=== PATIENT | female | born 1955 | race Caucasian/White ===

== ENCOUNTER 2024-07-26 13:05 | Emergency (ER) | payer OTHER ==
--- NOTE | 2024-07-26 14:27 | RAD REPORT ---
EXAMINATION: XR LEFT SHOULDER CLINICAL INDICATION: Female, 69 years old. GLF TECHNIQUE: Multiple views of the left shoulder were obtained. COMPARISON: No prior exam. FINDINGS: Mildly impacted and comminuted fracture proximal left humerus. Humeral head position is mil dly subluxed inferiorly relative to the glenoid.
--- NOTE | 2024-07-26 14:27 | RAD REPORT ---
EXAMINATION: ONE VIEW CHEST XR CLINICAL INDICATION: L upper chest pain TECHNIQUE: Frontal chest projection is submitted. Examination is limited by patient positioning and t echnique. COMPARISON: No prior exam. FINDINGS: The lungs are well inflated and clear. The heart is normal in size. No displaced fractures identified . Mild thoracic dextroscoliosis. IMPRESSION: No acute intrathoracic abnormalities.
--- NOTE | 2024-07-26 14:28 | RAD REPORT ---
EXAMINATION: XR LEFT HUMERUS HISTORY: GLF TECHNIQUE: Multiple views of the left humerus were obtained. COMPARISON: None FINDINGS: Mildly impacted fracture proximal left humerus noted. Humeral head position is mildly sublu xed inferiorly relative to the glenoid. Prominent bony fragment noted superior aspect of the glenohumeral joint.
--- NOTE | 2024-07-26 14:36 | ER ---
Nurse's Notes [facility] Name: Ally Medina Age: 69 yrs Sex: Female : 1955 Arrival Date: 07/26/2024 Time: 13:05 Bed 9 Private MD: Diagnosis: Proximal Humerus Fracture Presentation: 07/26 13:28 Chief complaint: Patient states: she fell just after midnight on , tripping ap3 over a toy. patient complains of pain to her left arm. patient reports being unable to move her left arm. Coronavirus screen: At this time, the client does not indicate any symptoms associated with coronavirus-19. Ebola Screen: No symptoms or risks identified at this time. Initial Sepsis Screen: Does the patient meet any 2 criteria? No. Patient's initial sepsis screen is negative. Does the patient have a suspected source of infection? No. Patient's initial sepsis screen is negative. Risk Assessment: Do you want to hurt yourself or someone else? Patient reports no desire to harm self or others. Onset of symptoms was July 25, 2024. 13:28 Method Of Arrival: Ambulatory ap3 13:28 Acuity: NAVA 3 ap3 Triage Assessment: 13:31 General: Appears uncomfortable, Behavior is calm, cooperative, appropriate for age. ap3 Pain: Complains of pain in left arm. Neuro: Level of Consciousness is awake, alert, obeys commands, Oriented to person, place, time, situation. Cardiovascular: Patient's skin is warm and dry. Respiratory: Airway is patent Respiratory effort is even, unlabored, Respiratory pattern is regular, symmetrical. Musculoskeletal: Range of motion: limited in left shoulder. Historical: - Allergies: 13:30 No Known Allergies; ap3 - PMHx: 13:30 Hypertensive disorder; Asthma; ap3 - Immunization history:: Client reports receiving the 2nd dose of the Covid vaccine, Last tetanus immunization: unknown, Flu vaccine is not up to date. - Infectious Disease History:: Denies. - Social history:: Smoking status: Patient denies any tobacco usage or history of. Screenin:31 [facility] ED Fall Risk Assessment (Adult) History of falling in the last 3 months, ap3 including since admission Yes- single mechanical fall (1 pt) Confusion or Disorientation No (0 pts) Intoxicated or Sedated No (0 pts) Impaired Gait No (0 pts) Mobility Assist Device Used No (0 pt) Altered Elimination No (0 pt) Score/Fall Risk Level 0 - 2 = Low Risk Oriented to surroundings, Maintained a safe environment, Educated pt \T\ family on fall prevention, incl call for assistance when getting out of bed, Assessed \T\ reinforced patient's understanding of fall precautions, Hourly rounding (assess needs \T\ fall precautionary measures) done, Used ambulatory aids as needed (educated on \T\ assisted with), Used gait belt as appropriate. Abuse screen: Denies threats or abuse. Nutritional screening: No deficits noted. Tuberculosis screening: No symptoms or risk factors identified. Assessment: 15:45 Reassessment: Patient appears in no apparent distress at this time. Patient and/or db family updated on plan of care and expected duration. Pain level reassessed. Patient is alert, oriented x 3, equal unlabored respirations, skin warm/dry/pink. General: Appears in no apparent distress. comfortable, Behavior is calm, cooperative. Neuro: Level of Consciousness is awake, alert, obeys commands, Oriented to person, place, time, situation. Respiratory: Airway is patent Respiratory effort is even, unlabored, Respiratory pattern is regular, symmetrical. Vital Signs: 13:28 BP 159 / 91; Pulse 114; Resp 18; Temp 97.9; Pulse Ox 100% ; Weight 68.04 kg; Height 5 ap3 ft. 0 in. ; Pain 10/10; 13:28 Body Mass Index 29.29 (68.04 kg, 152.4 cm) ap3 13:28 Pain Scale: Adult ap3 Laura Coma Score: 13:32 Eye Response: spontaneous(4). Motor Response: obeys commands(6). Verbal Response: ap3 oriented(5). Total: 15. Trauma Score (Adult): 13:32 Eye Response: spontaneous(1); Verbal Response: oriented(1); Motor Response: obeys ap3 commands(2); Systolic BP: > 89 mm Hg(4); Respiratory Rate: 10 to 29 per min(4); Gavi Score: 15; Trauma Score: 12 ED Course: 13:07 Patient arrived in ED. mr 13:08 Pascual Topete MD is Attending Physician. ec2 13:30 Triage completed. ap3 13:32 Patient maintains SpO2 saturation greater than 95% on room air. ap3 13:32 Arm band placed on right wrist. ap3 14:24 CXR XRAY In Process Unspecified. EDMS 14:24 Shoulder Left (2 View) XRAY In Process Unspecified. EDMS 14:24 Humerus Left XRAY In Process Unspecified. EDMS 14:35 Bryce Coles MD is Referral Physician. ec2 15:43 Vivien Cason, RN is Primary Nurse. iw 15:45 No provider procedures requiring assistance completed. Patient did not have IV access db during this emergency room visit. 15:45 Patient has correct armband on for positive identification. Call light in reach. Side db rails up X 1. Provided Education on: ORTHOPEDIC. Administered Medications: 15:25 Drug: Ketorolac IM 30 mg IM once Route: IM; Site: right deltoid; db 15:44 Follow up: Response: No adverse reaction db 15:25 Drug: Acetaminophen PO 1000 mg PO once Route: PO; db 15:44 Follow up: Response: No adverse reaction db 15:25 Drug: Methocarbamol PO 750 mg PO once Route: PO; db 15:44 Follow up: Response: No adverse reaction db Medication: 15:45 VIS not applicable for this client. db Outcome: 14:35 Discharge ordered by . ec2 15:45 Discharged to home via wheelchair, with family, db 15:45 Condition: stable 15:45 Discharge instructions given to patient, family, Instructed on discharge instructions, follow up and referral plans. Prescriptions given X 1, 15:46 Patient left the ED. db Signatures: Dispatcher [employer] EDAR Laurel Jones, Reg Reg mr Vivien Cason RN RN iw July Brown RN RN ap3 Alaina Isaac RN RN db Pascual Topete MD MD ec2
--- NOTE | 2024-07-26 14:36 | EDPHYS ---
Physician Documentation [facility] Name: Ally Medina Age: 69 yrs Sex: Female : 1955 Arrival Date: 07/26/2024 Time: 13:05 Bed 9 Private MD: ED Physician Pascual Topete HPI: 07/26 14:34 This 69 yrs old Female presents to ER via Ambulatory with complaints of Fall ec2 Injury. 14:34 Patient arrives today for evaluation after a ground-level fall, she had fallen on [place] ec2 [employer] [place] after alcohol beverages. Reports she landed on the left shoulder and having pain with movement.. Historical: - Allergies: 13:30 No Known Allergies; ap3 - PMHx: 13:30 Hypertensive disorder; Asthma; ap3 - Immunization history:: Client reports receiving the 2nd dose of the Covid vaccine, Last tetanus immunization: unknown, Flu vaccine is not up to date. - Infectious Disease History:: Denies. - Social history:: Smoking status: Patient denies any tobacco usage or history of. ROS: 14:34 Constitutional: as per hpi ec2 Exam: 14:34 Constitutional: GEN: NAD Head: atraumatic Eyes: EOMI Ears: External ears are ec2 normal. CV: regular rate LUNGS: no respiratory distress ABD: non-distended SKIN: no evidence of rashes MSK: Left proximal humerus with TTP, obvious swelling appreciated, intact distal neurovascular status. Vital Signs: 13:28 BP 159 / 91; Pulse 114; Resp 18; Temp 97.9; Pulse Ox 100% ; Weight 68.04 kg; Height 5 ap3 ft. 0 in. ; Pain 10/10; 13:28 Body Mass Index 29.29 (68.04 kg, 152.4 cm) ap3 13:28 Pain Scale: Adult ap3 Gavi Coma Score: 13:32 Eye Response: spontaneous(4). Motor Response: obeys commands(6). Verbal Response: ap3 oriented(5). Total: 15. Trauma Score (Adult): 13:32 Eye Response: spontaneous(1); Verbal Response: oriented(1); Motor Response: obeys ap3 commands(2); Systolic BP: > 89 mm Hg(4); Respiratory Rate: 10 to 29 per min(4); [place] Score: 15; Trauma Score: 12 MDM: 13:55 Medical Screening Exam initiated ec2 14:34 Data reviewed: vital signs, nurses notes. ED course: Patient arrives today for left ec2 shoulder pain. Examination yields MSK findings as above. Humerus x-ray independently reviewed and interpreted by me, shows left proximal humerus fracture. Will place patient in sling, prescribed medications for pain have the patient follow-up PCP orthopedic surgery. 07/26 14:04 Order name: CXR XRAY; Complete Time: 14:33 ec2 07/26 14:04 Order name: Shoulder Left (2 View) XRAY; Complete Time: 14:33 ec2 07/26 14:04 Order name: Humerus Left XRAY; Complete Time: 14:33 ec2 07/26 14:04 Order name: Sling; Complete Time: 14:07 ec2 Administered Medications: 15:25 Drug: Ketorolac IM 30 mg IM once Route: IM; Site: right deltoid; db 15:44 Follow up: Response: No adverse reaction db 15:25 Drug: Acetaminophen PO 1000 mg PO once Route: PO; db 15:44 Follow up: Response: No adverse reaction db 15:25 Drug: Methocarbamol PO 750 mg PO once Route: PO; db 15:44 Follow up: Response: No adverse reaction db Disposition Summary: 07/26/24 14:35 Discharge Ordered Notes: Location: Home ec2 Condition: Stable ec2 Diagnosis - Proximal Humerus Fracture ec2 Followup: ec2 - With: Bryce Coles MD - When: - Reason: Recheck today's complaints Discharge Instructions: - Discharge Summary Sheet ec2 - Humerus Fracture Treated With Immobilization, [id number] ec2 Forms: - Medication Reconciliation Form ec2 - Antibiotic Education ec2 - Prescription Opioid Use ec2 - Patient Portal Instructions ec2 - Leadership Thank You Letter ec2 Prescriptions: - acetaminophen-codeine 300-30 mg Oral tablet - take 1 tablet ORAL route every 12 hours; 10 tablet; Refills: 0, Product ec2 Selection Permitted Signatures: Dispatcher [employer] July Almeida RN RN ap3 Alaina Isaac RN RN Pascual Fletcher MD MD ec2
[2024-07-26] MEDS ORDERED: ACETAMINOPHEN 500 MG TAB ONE (15:25)
[2024-07-26] MEDS ORDERED: KETOROLAC 30 MG/ML INJ ONE (15:25)
[2024-07-26] MEDS ORDERED: methocarbamoL 750 MG TAB ONE (15:25)
[2024-07-26 16:09] VITALS: BP 159/91; TEMP 97.9; O2SAT 100
== END 2024-07-26 15:46 | disposition home or self-care (01) ==
LOC: ER 13:05
DX: S42.202B Unspecified fracture of upper end of left humerus, initial encounter for open fracture (principal); W18.30XA Fall on same level, unspecified, initial encounter; I10 Essential (primary) hypertension; J45.909 Unspecified asthma, uncomplicated
CPT/HCPCS: 71045; 96372; 99284